=== PATIENT | female | born 1985 | race Caucasian/White ===

== ENCOUNTER 2017-01-01 08:09 | Emergency (ER) | payer MEDICAID ==
[~2017-01-01] VITALS: Ht 154.9 cm; Wt 49.5 kg
[~2017-01-01 08:09] MED LIST: NITR-58 PO; PREN1TAB49
[2017-01-01 08:12] VITALS: Ht 154.9 cm; Wt 49.5 kg
[2017-01-01] MEDS ORDERED: LORAZEPAM 0.5 MG TAB PO ONE (08:30)
[2017-01-01] MEDS ORDERED: HYDR-842 PO (08:52)
--- NOTE | 2017-01-01 08:52 | ERD ---
ER Documentation Chief Complaint Date/Time DATE: 01/01/17 TIME: 08:47 Chief Complaint Complains of dizziness with sob and nausea this am HPI [id number] year old female otherwise healthy comes in with dizziness, shortness of breath, nausea this morning which she experienced when she woke up. She states that she feels better at this time but reports mild nausea. She denies chest pain, syncope, lower extremity swelling. ROS All systems reviewed and are negative except as per history of present illness. Medications Home Meds Active Scripts Nitrofurantoin Monohyd Macrocr* (Macrobid*) 100 Mg Capsr, 100 MG PO BID for 7 Days, CAP Prov:SHAWNA OBREGON 09/05/14 Reported Medications Vits W-Ca,Fe,Fa(<1MG) () 1 Tab Tablet 05/15/10 Allergies Allergies: Coded Allergies: No Known Drug Allergies (Verified Allergy, Mild, 05/15/10) PMhx/Soc Medical and Surgical Hx: pt denies Surgical Hx History of Surgery: No Anesthesia Reaction: No Hx Neurological Disorder: No Hx Respiratory Disorders: No Hx Cardiac Disorders: No Hx Psychiatric Problems: Yes (Anxiety) Hx Miscellaneous Medical Probl: No Hx Alcohol Use: No Hx Substance Use: No Hx Tobacco Use: No Physical Exam Vitals Vital Signs Date Time Temp Pulse Resp B/P Pulse Ox O2 Delivery O2 Flow Rate FiO2 01/01/17 08:12 98.4 71 20 138/85 100 Physical Exam General: Well-developed, well-nourished. The patient appears in no acute distress. HEENT: Head is normocephalic, atraumatic. No scleral icterus. Pupils are equal , round, and reactive. Oral mucous membranes are moist. No pharyngeal erythema. Neck: Supple. Nontender. Lungs: Clear to auscultation. Normal air movement. Heart: Regular rate and rhythm. S1 and S2 are normal. No murmurs, gallops, or rubs. Abdomen: Soft, nontender, nondistended. Bowel sounds are normoactive. Extremities: No clubbing or cyanosis. Normal pulses. Moving extremities x 4. No weakness. Neurologic: Alert and oriented 3. No focal deficits. Skin: Normal turgor. No rash or lesions. Results 24 hrs Laboratory Tests Test 01/01/17 08:32 Bedside Glucose 85mg/dL Current Medications Medications (Trade) Dose Ordered Sig/Netta Route PRN Reason Start Time Stop Time Status Last Admin Dose Admin Lorazepam (Ativan) 0.5 mg ONCE ONCE PO 01/01/17 08:30 01/01/17 08:31 DC 01/01/17 08:33 Procedures/MDM Urine is negative. Patient was given Ativan 0.5 mg p.o. Medical decision makin-year-old female presents with dizziness, shortness of breath and nausea, most consistent with an anxiety reaction. Patient's differential diagnosis is broad but is not limited to anxiety, pulmonary embolus , anemia, electrolyte abnormalities, acute coronary syndrome, , acute appendicitis, and among others. She has a normal examination, without any focal neurologic changes. Was given Ativan in the emergency department had significant improvement of her symptoms. She is not suicidal at this time does not warrant emergent psychiatric evaluation. Given Atarax to be taken as needed for symptoms. Departure Diagnosis: Primary Impression: Anxiety Condition: DEWAYNE Blue PA-C Jan 01, 2017 08:52
[2017-01-01] MEDS ORDERED: IBUP-1542 PO (09:08)
== END 2017-01-01 09:10 | disposition home or self-care (01) ==
LOC: FTE 08:09
DX: F41.9 Anxiety disorder, unspecified (principal)
CPT/HCPCS: 82962; Z7502; Z7610; 99283

== ENCOUNTER 2017-07-31 00:55 | Emergency (ER) | END 2017-07-31 06:02 | disposition home or self-care (01) ==